=== PATIENT | male | born 1995 ===

== ENCOUNTER 2024-03-02 09:32 | Outpatient (CLI) | payer BC, SELFPAY | END 2024-03-02 09:33 | disposition home or self-care (01) | PROVIDERS: PCP Family Medicine; Visit Provider Family Medicine | DX: Z00.00 Encounter for general adult medical examination without abnormal findings (principal); E78.00 Pure hypercholesterolemia, unspecified; F41.8 Other specified anxiety disorders; Z11.3 Encounter for screening for infections with a predominantly sexual mode of transmission | CPT/HCPCS: 80053; 80061; 86703; 87491; 87591 ==